=== PATIENT | female | born 1970 | race Caucasian/White ===

== ENCOUNTER 2018-07-12 16:40 | Inpatient (IN) | payer BC ==
--- NOTE | 2018-07-12 17:09 | EDPHY ---
H & P Stated Complaint: Pt. states SOB and insomnia x2 mo.'s has increased this past week Time Seen by Provider: 07/12/18 16:44 HPI/ROS: 48 yo F presents from her doctors office for shortness of breath. She states she has been feeling SOB for at least 2 months , although recently worse. She had a hx of hypertension and diabetes and has not taken any meds for about 2 years. She went to Family Practice yesterday and they planned to start her on Lisinopril, Atorvastatin and Metformin, she had not picked it up yet but returned to their office today with SOB. Review of systems As per HPI General no fever no chills positive fatigue, positive dyspnea on exertion HEENT no eye pain no eye discharge. No eye redness, no sore throat Respiratory positive cough, positive shortness of breath Cardiac no chest pain, no peripheral edema GI no abdominal pain, no diarrhea, no constipation, no nausea, no vomiting no flank pain, no hematuria, no dysuria Musculoskeletal no myalgias, no joint pain Heme no easy bruising, no easy bleeding Endo no polyuria, no polydipsia Skin no rashes, no pruritus Neuro no syncope, no dizziness, no headaches Psych is no suicidal ideation, no homicidal ideation Source: Patient Exam Limitations: No limitations - Personal History LMP (Females 10-55): 22-28 Days Ago Current Tetanus Diphtheria and Acellular Pertussis (TDAP): Unsure - Medical/Surgical History Hx Asthma: No Hx Chronic Respiratory Disease: No Hx Diabetes: Yes Hx Cardiac Disease: No Hx Renal Disease: No Hx Cirrhosis: No Hx Alcoholism: No Hx HIV/AIDS: No Hx Splenectomy or Spleen Trauma: No Other PMH: Med hx-type 2 diabetes,HTN. Surg- - Social History Smoking Status: Never smoked Alcohol Use: None Drug Use: None - Physical Exam Exam: 48-year-old female HEENT atraumatic normocephalic, extraocular muscles intact, anicteric Oropharynx negative for erythema negative exudate, tolerating her own secretions Neck supple no meningismus Lungs diminished at bases with wheeze at right base Heart rapid rate regular rhythm approximately 100, muffled Abdomen nondistended normoactive bowel sounds soft nontender Back no CVA tenderness, no step-offs, no spinal tenderness Extremities no cyanosis clubbing or edema Neuro alert and oriented, no focal deficits Constitutional: Initial Vital Signs Temperature (C) 36.7 C 07/12/18 16:48 Heart Rate 117 H 07/12/18 16:48 Respiratory Rate 22 H 07/12/18 16:48 Blood Pressure 167/118 H 07/12/18 16:48 O2 Sat (%) 93 07/12/18 16:48 O2 Delivery Mode Nasal Cannula O2 (L/minute) 2 Allergies/Adverse Reactions: Penicillins Allergy (Verified 07/12/18 16:46) Home Medications: Medication Instructions Recorded NK [No Known Home Meds] 07/12/18 Medical Decision Making - Diagnostics Imaging Results: Imaging Impressions Chest X-Ray 07/12/18 16:50 Impression: Marked enlargement of the cardiac silhouette compatible with cardiomegaly or pericardial effusion, with pulmonary vascular congestion. Chest/Thorax CTA 07/12/18 17:34 Impression: 1. Negative CT examination of the chest for acute pulmonary thromboembolic disease. 2. Patchy atelectasis of the lingula and right lower lobe, with small right pleural effusion. 3. Mild perihepatic ascites and fluid directly behind the pancreas. 4. Enlargement of all 4 cardiac chambers. Results called to Dr. Alvarenga at 6:20 PM at the time of the interpretation. ED Course/Re-evaluation: Patient seen and evaluated for shortness of breath, with known untreated hypertension and diabetes for several years. IV established, labs drawn Chest x-ray shows cardiomegaly and increased vasculature EKG normal sinus rhythm no acute ischemic changes CBC within normal limits D-dimer elevated Troponin upper limits of normal CMP elevated liver enzymes, elevated glucose BNP markedly elevated 9000 CT chest rule out PE protocol done negative for PE positive for cardiomegaly and a right pleural effusion Patient was given Lasix 20 mg IV push for both her blood pressure and presumed CHF at that time. She was also given baby aspirin to cover for the potential acute coronary syndrome. Her blood pressure remained high and she was given a sublingual nitroglycerin x3 with no significant change in her blood pressure. Next she was given labetalol 20 mg IV push, with M markedly improved blood pressure Impression Hypertension Congestive heart failure Ymi-nidqjfy-miymlejzz diabetes Plan Admit to telemetry Discussed with hospitalist Dr. Sergio Worrell Differential Diagnosis: Differential diagnosis considered but not limited to Pneumonia, COPD, asthma, pulmonary embolus, congestive heart failure, pericardial effusion, pleural effusion, myocardial infarction, poorly controlled hypertension, hyperglycemia, electrolyte abnormality - Data Points Laboratory Results: 07/12/18 07/12/18 07/12/18 17:03 17:01 16:55 POC Sodium 139 mEq/L mEq/L (135-145) POC Potassium 4.3 mEq/L mEq/L (3.3-5.0) POC Chloride 105.0 mEq/L mEq/L (97-110) POC Total CO2 25 mEq/L mEq/L (22-31) POC BUN 24 mg/dL H mg/dL (7-23) POC Creatinine 1.0 mg/dL mg/dL (0.6-1.0) POC Glucose 212 mg/dL H mg/dL (70-100) POC Calcium 9.1 mg/dL mg/dL (8.5-10.4) POC Total Bilirubin 1.1 mg/dL mg/dL (0.1-1.4) POC AST 73 IU/L H IU/L (14-46) POC ALT 89 IU/L H IU/L (9-52) POC Alk Phosphatase 121 IU/L IU/L (38-126) POC Troponin I 0.08 ng/mL ng/mL (0.00-0.08) NT-Pro-B Natriuret Pep 9380 pg/mL H pg/mL (0-125) POC Total Protein 7.5 g/dL g/dL (6.3-8.2) POC Albumin 3.4 g/dL L g/dL (3.5-5.0) Medications Given: Discontinued Medications Aspirin (Aspirin) 324 mg PO EDNOW ONE Stop: 07/12/18 17:37 Last Admin: 07/12/18 17:38 Dose: 324 mg Furosemide (Lasix Injection) 20 mg IVP EDNOW ONE Stop: 07/12/18 17:31 Last Admin: 07/12/18 17:38 Dose: 20 mg Labetalol HCl (Trandate Injection) 20 mg IVP EDNOW ONE Stop: 07/12/18 19:56 Last Admin: 07/12/18 20:03 Dose: 20 mg Nitroglycerin (Nitrostat) 0.4 mg SL EDNOW ONE Stop: 07/12/18 18:48 Last Admin: 07/12/18 19:13 Dose: 0.4 mg Point of Care Test Results: CBC CBC Collection Date 07/12/18 CBC Collection Time 16:55 WBC 9.23 RBC 5.47 HGB 14.8 HCT 46.4 PLT 312 Neut # 6.15 Neut 66.6 LYMPH # 2.12 LYMPH 23.0 MCV 84.8 Chemistry 07/12/18 07/12/18 17:03 17:01 POC Sodium 139 mEq/L mEq/L (135-145) POC Potassium 4.3 mEq/L mEq/L (3.3-5.0) POC Chloride 105.0 mEq/L mEq/L (97-110) POC Total CO2 25 mEq/L mEq/L (22-31) POC BUN 24 mg/dL H mg/dL (7-23) POC Creatinine 1.0 mg/dL mg/dL (0.6-1.0) POC Glucose 212 mg/dL H mg/dL (70-100) POC Calcium 9.1 mg/dL mg/dL (8.5-10.4) POC Total Bilirubin 1.1 mg/dL mg/dL (0.1-1.4) POC AST 73 IU/L H IU/L (14-46) POC ALT 89 IU/L H IU/L (9-52) POC Alk Phosphatase 121 IU/L IU/L (38-126) POC Troponin I 0.08 ng/mL ng/mL (0.00-0.08) POC Total Protein 7.5 g/dL g/dL (6.3-8.2) POC Albumin 3.4 g/dL L g/dL (3.5-5.0) D-Dimer D-Dimer Collection Date 07/12/18 D-Dimer Collection Time 16:55 D-Dimer (ng/ml) 1110 Urine Collection Date 07/12/18 Collection Time 18:49 HCG Results Negative Urine Dip Collection Date 07/12/18 Collection Time 18:48 Specific [place] (1.002-1.030) 1.005 PH (5.0-7.5) 5.0 Leukocytes (Negative) Trace Nitrites (Negative) Negative Protein (Negative) Negative Glucose (Negative) Negative Ketones (Negative) Negative Urobilnogen (0.2-1.0 EU) 0.2 Bilirubin (Negative) Negative Blood (Negative) Trace Departure - Departure Disposition: [facility] Acute Clinical Impression: Congestive heart failure, Hypertension Condition: Fair
[2018-07-12] MEDS ORDERED: FUROSEMIDE 20 MG/2 ML VIAL IVP ONE (17:30)
[2018-07-12] MEDS ORDERED: ASPIRIN 81 MG CHEWABLE TAB PO ONE (17:36)
[2018-07-12] MEDS ORDERED: IOPAMIDOL (ISOVUE 370) 100 ML BTL IV ONE (17:38)
[2018-07-12] MEDS ORDERED: ONDANSETRON 4 MG/2 ML VIAL IVP PRN (18:56)
[2018-07-12] MEDS ORDERED: ACETAMINOPHEN 325 MG TAB PO PRN (18:56)
[2018-07-12] MEDS ORDERED: ONDANSETRON DISINTEGRATING 4 MG TAB PO PRN (18:56)
[2018-07-12] MEDS: NITROGLYCERIN 0.4 MG BTL SL ONE ×3 (19:02→19:13)
[2018-07-12] MEDS ORDERED: LABETALOL HCL 5 MG/ML 20 ML MDV IVP ONE (19:55)
--- NOTE | 2018-07-12 21:43 | PDGENHP ---
History and Physical - Chief Complaint SAUCEDO - History of Present Illness Toña Jaquez is a 48 yo F with PMHx of T2DM and HTN who presents to [facility] for SOB. She has not seen a physician or taken medications for her chronic conditions for >2 years. She presented to PCP yesterday and was prescribed Lisinopril, Metformin, however has not prescribed them. She represented to PCP today for SOB. BP was found to be 160/120 with tachypnea and hypoxia 89% on 2L NC. She denies any palpitations, lower extremity edema. She does report a mild chest discomfort, non-radiating, described as dull in quality. In the ED, D-Dimer was elevated, CTA was performed which was negative for PE but did show cardiomegaly and small R sided pleural effusion. She was given dose of IV Lasix and transferred to [facility]. History Information - Allergies/Home Medication List Allergies/Adverse Reactions: Penicillins Allergy (Verified 07/12/18 21:23) Other-Enter Comments Home Medications: NK [No Known Home Meds] 07/12/18 [Last Taken Unknown] I have personally reviewed and updated: family history, medical history, social history, surgical history - Past Medical History diabetes type 2, hypertension - Surgical History Reports: no pertinent surgical hx - Family History Positive for: non-pertinent - Social History Smoking Status: Never smoked Alcohol Use: None Drug Use: None Review of Systems Review of Systems: ROS: 10pt was reviewed & negative except for what was stated in HPI & below Physical Exam Physical Exam: Temp Pulse Resp BP Pulse Ox 36.7 C 84 24 H 150/106 H 96 07/12/18 16:48 07/12/18 20:38 07/12/18 20:38 07/12/18 20:38 07/12/18 20:38 O2 (L/minute) 2 Constitutional: no apparent distress Eyes: PERRL Ears, Nose, Mouth, Throat: moist mucous membranes Cardiovascular: regular rate and rhythym Respiratory: reduced air movement, inspiratory crackles Gastrointestinal: soft, non-tender abdomen Skin: warm Musculoskeletal: full muscle strength Neurologic: AAOx3 Lab Data & Imaging Review POC Sodium 139 mEq/L (135-145) 07/12/18 17:01 POC Potassium 4.3 mEq/L (3.3-5.0) 07/12/18 17:01 POC Chloride 105.0 mEq/L (97-110) 07/12/18 17:01 POC Total CO2 25 mEq/L (22-31) 07/12/18 17:01 POC BUN 24 mg/dL (7-23) H 07/12/18 17:01 POC Creatinine 1.0 mg/dL (0.6-1.0) 07/12/18 17:01 POC Glucose 212 mg/dL (70-100) H 07/12/18 17:01 POC Calcium 9.1 mg/dL (8.5-10.4) 07/12/18 17:01 POC Total Bilirubin 1.1 mg/dL (0.1-1.4) 07/12/18 17:01 POC AST 73 IU/L (14-46) H 07/12/18 17:01 POC ALT 89 IU/L (9-52) H 07/12/18 17:01 POC Alk Phosphatase 121 IU/L (38-126) 07/12/18 17:01 POC Troponin I 0.08 ng/mL (0.00-0.08) 07/12/18 17:03 NT-Pro-B Natriuret Pep 9380 pg/mL (0-125) H 07/12/18 16:55 POC Total Protein 7.5 g/dL (6.3-8.2) 07/12/18 17:01 POC Albumin 3.4 g/dL (3.5-5.0) L 07/12/18 17:01 Assessment & Plan Assessment: Acute CHF Exacerbation - Prsenting with SOB, CTA showing Cardiomagely and R sided pleural effusion - No hx of CHF, will order TTE to further evaluate - S/p 20 mg IVP Lasix in ED, evalate response and redose as needed, has not been on diuretics in the past - Will start Lisinopril for CHF and HTN as below - Monitor I/O, daily weights, BMP Hypertensive Urgency - BP 160/120 on admission - Has not been on medications for >2 years - Will Lisinopril 10 mg qd this evening, consider adding B-Gallo if indicated after TTE performed - Continue to monitor Chest Discomfort - Reporting mild chest discomfort, likely in setting of CHF - EKG pending - POC Trop 0.08 on admission, will repeat and trend overnight - S/p ASA 325 mg in ED Transaminitis - AST/ALT mildly elevated on admission, possibly in setting of alcohol use - Will order RUQ U/S to further evaluate - Continue to monitor LFTs T2DM - BG 212 on admission - Was going to be prescribed Metformin by PCP yesterday - Will order SSI as IP FEN: Diabetic Diet DVT PPx: Lovenox Code: FULL Dispo: Admit to Medicine
[2018-07-12] MEDS ORDERED: D50W 25 GM/50 ML SYR IVP PRN (21:44)
[2018-07-12] MEDS: LISINOPRIL 10 MG TAB PO SCH (23:26)
[2018-07-13 04:52] LABS: PLATELET COUNT 257 10^3/uL (150-400)
[2018-07-13] MEDS: INSULIN LISPRO 100 UNIT/ML SC SCH ×3 (07:47→17:56)
[2018-07-13] MEDS: ENOXAPARIN 40 MG/0.4 ML SYR SC SCH (09:31)
[2018-07-13] MEDS: FUROSEMIDE 20 MG/2 ML VIAL IVP SCH (09:31)
[2018-07-13] MEDS: LISINOPRIL 10 MG TAB PO SCH (09:31)
--- NOTE | 2018-07-13 11:05 | ECHO ---
[email or web address] [address] [address] Main: [phone] Echocardiography Examination Transthoracic Name: LETTY BRADLEY MR#: [id number] Study Date: 07/13/2018 Study Time: 09:01 AM Date of : 1970 Age: 48 year(s) Height: 162.6 cm (64 in.) Weight: 99.79 kg (220 lb.) BSA: 2.04 m2 Gender: Female Examination: Echo Indication: Shortness of breath Image Quality: Adequate Contrast: Requested by: Sergio Worrell BP: 165 mmHg/101 mmHg Heart Rate: 85 bpm Rhythm: Normal sinus rhythm Indication: Shortness of breath Procedure Staff Referring Physician: Web Project Manager: Coty Rodriguez [facility] Reading Physician: Elgin Ojeda MD Requesting Provider: Ordering Physician: Sergio Worrell Indication: Shortness of breath Measurements Chambers AV/MV Label Value Normal Value Label Value Normal Value EF lower range (%) 35 % AV PGmax 4 mmHg EF upper range (%) 40 % AV Vmax, Caliper 1.03 m/s IVSd, 2D 1.2 cm (0.6cm - 1.1cm) RAINE D (continuity eq. 2.4 cm2 LVDd, 2D 5 cm (3.9cm - 5.3cm) Vmax) LVDs, 2D 4.2 cm (2.1cm - 4cm) MV A Vmax 0.36 m/s LVEF, 2D 33 % (54% - 74%) MV DT 148 ms LVEF, BP 36 % (55% - 70%) MV E' lateral 0.07 m/s LVEF, MOD2 35 % (55% - 70%) MV E' mean 0.06 m/s LVEF, MOD4 36 % (55% - 70%) MV E' septal 0.04 m/s LVOT PGmax 3 mmHg MV E Vmax 1.06 m/s LVOT Vmax 0.8 m/s (0.7m/s - 1.1m/s) MV E/A 2.94 LVOTd 2 cm (1.8cm - 2cm) MV E/E' lateral 15.5 LVPWd, 2D 1.1 cm MV E/E' mean 19.27 RVDd, 2D 4.4 cm (1.9cm - 3.8cm) MV E/E' septal 23.7 (0.5 - 1.7) TAPSE 1.6 cm TV/PV LADs, 2D 4.3 cm (2.7cm - 3.8cm) Label Value Normal Value LAESV index, MOD2 48 ml/m2 RA Pressure 15 mmHg RA Area 21.8 cm2 RVSP 45 mmHg Patient: LETTY BRADLEY Study Date: 07/13/2018 Page 1 of 3 09:01 AM Additional Vessels TR Pmax 30 mmHg Label Value Normal Value TR Vmax 2.73 m/s AoAsc 3.6 cm PV PGmax 3 mmHg AoRoot, 2D 3.1 cm (1.4cm - 2.6cm) PV Vmax, Caliper 0.92 m/s (0.6m/s - 0.9m/s) Conclusions Normal left ventricular size with mild concentric left ventricular hypertrophy. The ejection fraction is moderately reduced estimated at 35-40% with global hypokinesis. Grade 3 diastolic dysfunction. No regional wall motion abnormalities. Mild right ventricular dilatation. Moderate left atrial enlargement with mild right atrial enlargement. Mild mitral annular calcification with mild mitral regurgitation. Trileaflet aortic valve with trivial aortic sclerosis. There is no evidence of aortic stenosis. Mild aortic regurgitation is present. Normal appearing tricuspid valve. Moderate tricuspid regurgitation. Moderately elevated estimated RVSP at 45 mmHg. Trivial pericardial effusion. Plethoric IVC. Bonnie1 Bonnie1 Findings Left Ventricle: Left ventricle is normal in size. EF evaluated by EF (biplane Josue's). EF range is estimated at 35 % - 40 %. There is mild concentric left ventricular hypertrophy. Grade III Diastolic Dysfunction. There is moderate diffuse hypokinesis. Right Ventricle: Mildly dilated right ventricle. Right ventricular systolic function is mildly reduced. Left Atrium: The left atrium is moderately dilated. IAS: There is evidence of a hypermobile interatrial septum. Right Atrium: The right atrium is mildly dilated. Mitral Valve: Mitral valve appears structurally normal. Mild mitral regurgitation. No mitral valve stenosis. There is mild mitral thickening. There is mild mitral annular calcification. Aortic Valve: Aortic leaflets are structurally normal. Mild aortic regurgitation is present. There is no aortic stenosis. Aortic leaflets exhibit mild calcification. The aortic valve is trileaflet. Tricuspid Valve: Tricuspid valve leaflets are structurally normal. Moderate tricuspid regurgitation. No tricuspid valve stenosis. Right Ventricular systolic pressure is measured at 45 mmHg. Pulmonary artery pressure is mildly increased. Pulmonic Valve: Pulmonic leaflets are structurally normal. Mild pulmonic valve regurgitation is present. Aorta: The aorta is normal. The aortic root size in 2D measures 3.1 cm. The ascending aorta measures 3.6 cm. Aorta Measurements AoRoot, 2D is 3.1 cm. IVC: The inferior vena cava is dilated. Respirophasic changes are blunted (less than 50% variation). Pericardium: Trivial pericardial effusion. Exam Details Procedure Ordered: Echo Procedure Views: Images were obtained from the parasternal, apical, subcostal, and suprasternal notch acoustic windows Procedure Status: Routine study Image Quality: Adequate Facility Location: Cardiac Echo 1 Patient: LETTY BRADLEY Study Date: 07/13/2018 Page 2 of 3 09:01 AM (No Signature Object) Patient: LETTY BRADLEY Study Date: 07/13/2018 Page 3 of 3 09:01 AM [id number]
--- NOTE | 2018-07-13 16:16 | ASMTCMCOM ---
CM Note CM Note Notes: 07/13/2018 Case Management Note Met w/pt to discuss d/c needs. Py admitted for HTN and new onset congestive heart failure. Discussed in rounds. There are no therapies ordered today. Pt is employed at [employer]. Pt PCP is Cayla on [facility] in [place]. Emergency contact is Sejal Salamanca [phone]. There are no identfied case management d/c needs d/t independence with ADL's and employment status. Case Management d/c poc: independent with follow up as directed. Case Management available if needs change. Date Signed: 07/13/2018 04:16 PM Electronically Signed By:Luly Krueger RN
[2018-07-13] MEDS: SPIRONOLACTONE 25 MG TAB PO SCH (16:48)
[2018-07-13] MEDS: ASPIRIN 81 MG CHEWABLE TAB PO SCH (16:48)
--- NOTE | 2018-07-13 16:57 | HOSPPROG ---
Addendum entered and electronically signed by Clem Fuentes MD 07/13/18 16: 59: Pt needs to be inpatient for ongoing management. Original Note: Hospitalist Progress Note Assessment/Plan: Acute CHF Exacerbation - Prsenting with SOB, CTA showing Cardiomagely and R sided pleural effusion - No hx of CHF -TTE c/w LVH, EF 35%, global hypokinesis, RVSP 45 -cont Lasix -cont Lisinopril -Add BB - Monitor I/O, daily weights, BMP Hypertensive Urgency - BP 160/120 on admission - Has not been on medications for >2 years Indeterminate Troponin Chest Discomfort - Reporting mild chest discomfort, likely in setting of CHF - POC Trop 0.08 on admission, will repeat and trend overnight - S/p ASA 325 mg in ED Transaminitis - AST/ALT mildly elevated on admission, possibly in setting of alcohol use - Will order RUQ U/S to further evaluate - Continue to monitor LFTs T2DM - BG 212 on admission - Was going to be prescribed Metformin by PCP yesterday - Will order SSI as IP -A1C FEN: Diabetic Diet DVT PPx: Lovenox Code: FULL Plan: Stat EKG, unclear why not done previously Cards consult cont diuretics add BB Subjective: no cp currently. still with sob. still with edema Objective: Vital Signs Temp Pulse Resp BP Pulse Ox 36.4 C 94 15 143/104 H 96 07/13/18 15:47 07/13/18 15:47 07/13/18 15:47 07/13/18 15:47 07/13/18 15:47 Laboratory Results 07/13/18 03:30 07/13/18 08:26 07/12/18 07/13/18 07/14/18 05:59 05:59 05:59 Intake Total 200 1910 Output Total 1000 1300 Balance -800 610 - Physical Exam Constitutional: no apparent distress Eyes: PERRL Ears, Nose, Mouth, Throat: moist mucous membranes, hearing normal Cardiovascular: regular rate and rhythym, edema Respiratory: no respiratory distress, reduced air movement Gastrointestinal: normoactive bowel sounds, soft, non-tender abdomen Skin: warm Musculoskeletal: generalized weakness Neurologic: AAOx3 Psychiatric: interacting appropriately Lymph, Heme, Immunologic: No petechiae ICD10 Worksheet Patient Problems: Problems Problem Status Onset Congestive heart failure Acute Hypertension Acute
--- NOTE | 2018-07-13 17:47 | PDMN ---
Medical Necessity Medical necessity: [facility] M190 Heart Failure: 48 yo presents w/ SOB. Eval reveals acute CHF exacerbation w/ cardiomegaly and R pleural effusion and hypertensive urgency w/ BP 160/120. Initially OBS for workup/tx but pt meets [facility] IP criteria for HF w/ ongoing hypoxia w/ SOB requiring O2 beyond OBS care requiring additional MN. Cont IV Lasix. Hx DMII, HTN. Change to IP status 07/13@1659 per MD order.
[2018-07-13] MEDS: CARVEDILOL 3.125 MG TAB PO SCH (17:54)
--- NOTE | 2018-07-13 20:36 | GCON ---
[f rep st] CONSULTATION CARDIOLOGY CONSULTATION REFERRING PHYSICIAN: Clem Fuentes MD SUPERVISING FIELD NURSE CASE MANAGER: Dr. Bhavesh Delaney. INDICATION FOR CARDIOLOGY CONSULTATION: Systolic heart failure, with new found cardiomyopathy. HISTORY OF PRESENT ILLNESS: Parent is a 48-year-old female who was first diagnosed with type 2 diabetes, and hypertension in 2014. She reports she has not seen any medical provider for greater than 2 years. She has been noticing over the last 6 months of shortness of breath, feeling this had worsened in the last week. She did make an appointment to see PCP 2 days ago when she was prescribed lisinopril and metformin. 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 She did feel significantly worse and did present to the PCP yesterday afternoon, she was noted to be hypertensive with blood pressure of 160/120, tachypneic and hypoxic. Due to this, she was sent to the emergency department for further evaluation. On arrival, chest x-ray was done, which did note enlarged cardiac silhouette with cardiomegaly and/or pericardial effusion with pulmonary vascular congestion. Laboratory studies were drawn, which noted a BNP of 9380, negative troponin at 0.01, positive D-dimer for which she underwent CT-A of the chest which showed no PE and enlargement of all 4 cardiac chambers. She was transferred [place] the [facility] [place] to the [facility] and admitted directly to the PCU. She did receive IV diuresis in the ED. Since her admission, she does report her shortness of breath has improved. She states she has had no chest pressure or pain. She reports no palpitations, denies of any lightheadedness, near-syncope, or syncopal events. She reports that she has been mildly orthopnea, worsening in the last few days, but denies of any PND. She states she has not noticed any significant weight gain, but reports she does on monitor weight on a daily basis, and has not noticed any significant increase in edema or abdominal swelling. She denies any recent fevers, chills, or night sweats, and denies any history of hematemesis or bleeding of unknown reason. She has cardiac risk factors that include type 2 diabetes, hypertension, and questionable hyperlipidemia. She denies of any history of peripheral vascular disease, smoking. She does state that she has family history of CAD, with a maternal grandfather having an MT at age 66. PAST MEDICAL HISTORY: Patient's past medical history, includes type 2 diabetes , hypertension, and obesity. PAST SURGICAL HISTORY: She denies any surgical history. FAMILY HISTORY: Reporting maternal grandfather with history of MT at age 66. SOCIAL HISTORY: She reports she works at [employer] in [place]. She was born in [facility]. She is not . She has no children. She denies any history of tobacco abuse, reports rare alcohol use less than 1 week, and denies any illicit drug use. ALLERGIES: Penicillin. HOME MEDICATIONS: No home medications per patient. REVIEW OF SYSTEMS: 10-point review of systems done on patient all negative, except as mentioned above. PHYSICAL EXAMINATION: GENERAL APPEARANCE: Medium built, moderately obese, female. She is alert and oriented to person, place, time, and situation. She appears to be under no acute distress at this time. VITAL SIGNS : Current: Blood pressure 143/104, heart rate of 94, sinus rhythm on the monitor, respirations are 15, saturating 96% on 2 L nasal cannula, temperature 36.4 degrees Celsius. HEENT: Head is normocephalic. Lips and tongue are pink and moist with no signs of cyanosis. Conjunctivae pink. NECK: Trachea is midline, +2 carotid pulses bilateral. No auscultated bruits. Jugular laying 4 to 5 cm above sternal notch at 45 degree angle. RESPIRATORY: Lungs diminished in bases bilateral. No rhonchi, rales, or wheezing noted. No accessory muscle use. No intercostal muscle retraction noted. CARDIAC: Regular rate, regular rhythm, S1, S2. No S3, S4, gallops, rubs, or murmurs noted. ABDOMEN: Firm, nontender. Bowel sounds x4 quadrants. No organomegaly. No palpable masses. SKIN: [place], warm, dry. EXTREMITIES: No cyanosis. No clubbing. Trace to +1 peripheral edema bilateral lower extremities. LABORATORY STUDIES: CBC drawn on July 13, today showing WBC of 8.54, hemoglobin of 13.3, hematocrit of 42.8, platelet count of 257. Sodium 136, potassium 4.0, chloride 102, CO2 25, BUN 24, creatinine 0.9, glucose 175, calcium 8.3. Total bilirubin 0.8, AST 56, ALT of 95, alkaline phosphate 112, total protein 6.7, albumin 3.2. On admission noted to have a BNP of 9380. Initial troponin of 0.08, peaking last night at 0.060, and this morning at 0.051. STUDIES: Chest x-ray as mentioned above. CT-A of chest as mentioned above. Abdominal ultrasound done on 07/12/2018 showing hepatomegaly with no cirrhosis, , and wall echo shadow complex. No biliary dilation or evidence of __ . Trace of free fluid in the right upper quadrant. Echocardiogram done on this morning on 07/13/2018, noting normal LV size with mild concentric LVH, EF was moderately reduced with EF at 35% to 40% with global hypokinesis, grade 3 diastolic dysfunction with no regional wall motion abnormalities, mild RV dilation, moderate LA enlargement, mild RA enlargement, mild mitral annular calcification with mild MR, trivial aortic sclerosis with no evidence of stenosis, mild AI, moderate TR, RVSP at 45 mmHg with a trivial pericardial effusion. ASSESSMENT AND PLAN: 1. Acute systolic heart failure: Patient reporting shortness of breath, noted to have significantly elevated BNP greater than 9000, echocardiogram noting ejection fraction reduced at 35% to 40% with global hypokinesis. Patient has been treated with intravenous Lasix and reports significant improvement in symptoms. We will continue intravenous diuresis, daily weights, electrolyte monitoring, monitoring intake and output. 2. Cardiomyopathy, new onset: Patient has been noted to be extremely hypertensive, ejection fraction 35% to 40%. She has been started on lisinopril. Will start her on low-dose carvedilol at 3.125 mg p.o. daily and low-dose Aldactone at 12.5, diuresis as above. Will add laboratories to be drawn for evaluation of possible causes, including urine protein electrophoresis , serum electrophoresis, random urine creatinine, random urine protein, iron panel, and TSH level. Depending on results, and how she diureses, with her multiple cardiac risk factors , ischemia should also be evaluated, especially with episode of non-determinate troponin elevation. We will plan on diuresing her for the next day or two, and potentially having her undergo right and left heart catheterization, either on Monday or Monday. 3. Elevated troponin level: Patient noted with mildly elevated troponin level this morning peaking at 0.060 on a downward decline to 0.51. She reports no chest pain or pressure, but per the hospitalist, she did initially when examined by them. Her electrocardiogram showed sinus rhythm, possible left atrial enlargement, poor R-wave progression in anterior leads, with a leftward axis. Due to her echocardiogram showing reduced ejection fraction with global hypokinesis, at this time will continue on antiplatelet therapy of aspirin. With her multiple cardiac risk factors, we will plan on evaluating for ischemia , coronary angiogram as mentioned above. If she does develop worsening symptoms suggesting of ischemia, her catheterization can always be pushed up more urgently. 4. Hypertension urgency: Patient with significantly elevated blood pressure on admission, with improvement with the addition of lisinopril and Aldactone to her medication management. As mentioned above, will add carvedilol and Aldactone, will continue to monitor. 5. Transaminase: AST, and ALT were noted elevated upon arrival, improvement after diuresis. Ultrasound of the right upper quadrant showed no acute process. Probably elevation due to systolic heart failure, improvement of today 's lab. Repeat levels in the morning. 6. History of hyperlipidemia: Patient states she may have hyperlipidemia. Will order a fasting lipid panel in morning. With multiple risk factors, statin therapy should be considered. 7. Type 2 diabetes: Patient with type 2 diabetes, with noted elevated glucose on admission. Currently hemoglobin A1c returning at 8.5. Defer diabetic management to hospitalist services. Thank you for this consultation. We will be glad to follow along with you. /[id number]/MODL MTDD
[2018-07-14] MEDS: ASPIRIN 81 MG CHEWABLE TAB PO SCH (08:32)
[2018-07-14] MEDS: SPIRONOLACTONE 25 MG TAB PO SCH (08:32)
[2018-07-14] MEDS: LISINOPRIL 10 MG TAB PO SCH (08:33)
[2018-07-14] MEDS: CARVEDILOL 3.125 MG TAB PO SCH ×2 (08:33→18:17)
[2018-07-14] MEDS: ENOXAPARIN 40 MG/0.4 ML SYR SC SCH (08:34)
[2018-07-14] MEDS: INSULIN LISPRO 100 UNIT/ML SC SCH ×3 (08:34→18:18)
[2018-07-14] MEDS: FUROSEMIDE 20 MG/2 ML VIAL IVP SCH (08:35)
--- NOTE | 2018-07-14 11:10 | PDCARPN ---
Cardiology Progress Note Chief Complaint: Fatigue with progressive dyspnea Assessment/Plan: Assessment: Patient is a 48 y/o female with lack of recent medical following in setting of both DM and HTN (poor control of both now noted), who presented to [facility] with complaints of fatigue and progressive dyspnea. Aggressive medical therapy has been started, and as of today, the patient reports that she is feeling somewhat better. Minimal weight loss has been noted by measured assessments. No cardiovascular complaints or chest pains or pressure. No PND or orthopnea. Tolerance to the newly started mediations. Echocardiography with moderate reduction in systolic function noted (35%) without clear cause. No elevation in troponin noted, and no dynamic ST/T wave changes were appreciated on ECG. Plan: (1) Plans for continued medical management - ASA for CV risks - aggressive DM therapy to continue - more aggressive HTN management to continue with coreg, lisinopril, and aldactone (2) Plans for angiography Monday (right, left, and cor) (3) Ambulation as tolerated Patient was in agreement with these plans. Subjective: No cardiovascular complaints Objective: Vital Signs (8 Hrs) Temp Pulse Resp BP Pulse Ox 07/14/18 07:30 36.7 C 85 20 132/96 H 96 07/14/18 03:56 36.8 C 88 20 142/98 H 96 Intake/Output (24 Hrs) 07/13/18 07/14/18 07/15/18 05:59 05:59 06:59 Intake Total 0 Output Total 1450 250 Balance -1450 -250 Intake: Oral (ml) 0 Output: Urine (ml) 1450 250 Toilet 1450 250 Other: Weight 98.6 kg Number of Stools Toilet 1 1 Result Diagrams: 07/13/18 03:30 07/14/18 03:56 Telemetry: sinus rhythm Echocardiogram: moderate suppression of the LVEF (35%) - Physical Exam Constitutional: WDWN, no apparent distress, obese Eyes: PERRL, EOMI Ears, Nose, Mouth, Throat: moist mucous membranes Cardiovascular: regular rate and rhythm, no murmurs, no rubs, no gallops, pulses symmetric bilat, No jugular vein distention Peripheral Pulses: 2+: dorsalis-pedis (R), dorsalis-pedis (L) Respiratory: clear to auscultate bilat, no crackles, no wheezes Gastrointestinal: normoactive bowel sounds Skin: no rashes Musculoskeletal: no muscular tenderness, no joint effusions Neurologic: AAOx3, CN II-XII grossly intact Psychiatric: cooperative, interactive, following commands ICD10 Worksheet Patient Problems: Problems Problem Status Onset Congestive heart failure Acute Hypertension Acute
--- NOTE | 2018-07-14 15:08 | HOSPPROG ---
Hospitalist Progress Note Assessment/Plan: Acute CHF Exacerbation - Presenting with SOB, CTA showing Cardiomagely and R sided pleural effusion - No hx of CHF - TTE on this admission c/w LVH, EF 35%, global hypokinesis, RVSP 45 - cont Lasix 20 mg IV qd, may need additional dose this afternoon - cont Lisinopril - Coreg and Aldactone added by cardiology - Cardiology following, LHC and RHC to be performed on Monday - Monitor I/O, daily weights, BMP Hypertensive Urgency - BP 160/120 on admission, improved to 130/90 this AM - Has not been on medications for >2 years - Diuresis with addition of coreg and aldactone added by cardiology Chest Discomfort - Reporting mild chest discomfort, likely in setting of CHF - POC Trop 0.08 on admission trended 0.06-0.05 - S/p ASA 325 mg in ED Transaminitis - AST/ALT mildly elevated on admission, possibly in setting of alcohol use - RUQ U/S performed on 07/12 which showed hepatomegaly, no acute abnormalities - Continue to monitor LFTs T2DM - BG 212 on admission - Was going to be prescribed Metformin by PCP - SSI as IP -A1C Hyponatremia - Na 133 this AM, in setting of diuretics - Repeat Na in the Am FEN: Diabetic Diet DVT PPx: Lovenox Code: FULL Dispo: Pending clinical course Subjective: Patient reports mild improved SOB this AM Objective: Vital Signs Temp Pulse Resp BP Pulse Ox 36.5 C 96 16 135/91 H 97 07/14/18 12:00 07/14/18 12:00 07/14/18 12:00 07/14/18 12:00 07/14/18 12:00 Laboratory Results 07/14/18 03:56 07/13/18 07/14/18 07/15/18 05:59 05:59 06:59 Intake Total 0 Output Total 1450 1250 Balance -1450 -1250 - Physical Exam Constitutional: no apparent distress Eyes: PERRL Ears, Nose, Mouth, Throat: moist mucous membranes Cardiovascular: regular rate and rhythym, edema Respiratory: no respiratory distress Gastrointestinal: soft, non-tender abdomen Skin: warm Neurologic: AAOx3 Psychiatric: interacting appropriately ICD10 Worksheet Patient Problems: Problems Problem Status Onset Congestive heart failure Acute Hypertension Acute
[2018-07-15] MEDS: CARVEDILOL 3.125 MG TAB PO SCH ×2 (07:39→18:40)
[2018-07-15] MEDS: INSULIN LISPRO 100 UNIT/ML SC SCH ×3 (08:10→18:40)
[2018-07-15] MEDS: ASPIRIN 81 MG CHEWABLE TAB PO SCH (09:16)
[2018-07-15] MEDS: SPIRONOLACTONE 25 MG TAB PO SCH (09:16)
[2018-07-15] MEDS: LISINOPRIL 10 MG TAB PO SCH (09:17)
[2018-07-15] MEDS: FUROSEMIDE 20 MG/2 ML VIAL IVP SCH (09:17)
[2018-07-15] MEDS: ENOXAPARIN 40 MG/0.4 ML SYR SC SCH (09:17)
--- NOTE | 2018-07-15 11:27 | PDCARPN ---
Cardiology Progress Note Chief Complaint: Patient is feeling well today. Assessment/Plan: Assessment: 07-15-18 Patient doing well today. No cardiovascular complaints of chest pains or pressure. No PND or orthopnea. Ongoing diuresis with about 2 kg of weight diuresed off between yesterday and today. No indications for this procedure to be performed today (not urgent) and would like to have the patient diuresed prior to performance of invasive procedure. Patient was in agreement with these plans. 07-14-18 Patient is a 48 y/o female with lack of recent medical following in setting of both DM and HTN (poor control of both now noted), who presented to [facility] with complaints of fatigue and progressive dyspnea. Aggressive medical therapy has been started, and as of today, the patient reports that she is feeling somewhat better. Minimal weight loss has been noted by measured assessments. No cardiovascular complaints or chest pains or pressure. No PND or orthopnea. Tolerance to the newly started mediations. Echocardiography with moderate reduction in systolic function noted (35%) without clear cause. No elevation in troponin noted, and no dynamic ST/T wave changes were appreciated on ECG. Plan: (1) Plans for continued medical management - ASA for CV risks - aggressive DM therapy to continue - HTN management to continue with coreg, lisinopril, and aldactone (2) Plans for angiography Monday (right, left, and cor) (3) Ambulation as tolerated Subjective: Patient feeling well today Reviewed/Discussed With: family Objective: Vital Signs (8 Hrs) Temp Pulse Resp BP Pulse Ox 07/15/18 11:20 36.8 C 83 18 113/77 96 07/15/18 07:37 36.7 C 88 20 140/97 H 94 07/15/18 04:00 36.8 C 86 20 112/72 97 Intake/Output (24 Hrs) 07/14/18 07/15/18 07/16/18 04:59 05:59 05:59 Intake Total Output Total 200 Balance -200 Intake: Oral (ml) Output: Urine (ml) 200 Toilet 200 Other: Weight Number of Voids Toilet Number of Stools Toilet Result Diagrams: 07/13/18 03:30 07/15/18 03:34 Telemetry: normal sinus rhythm with rate of 90 bpm - Physical Exam Constitutional: WDWN, healthy appearing, no apparent distress, obese Eyes: PERRL, EOMI Ears, Nose, Mouth, Throat: moist mucous membranes Cardiovascular: regular rate and rhythm, no murmurs, no rubs, no gallops, pulses symmetric bilat, No jugular vein distention Peripheral Pulses: 2+: dorsalis-pedis (R), dorsalis-pedis (L) Respiratory: clear to auscultate bilat, no crackles Gastrointestinal: normoactive bowel sounds Skin: no rashes, other (trace edema) Neurologic: AAOx3, CN II-XII grossly intact Psychiatric: cooperative, interactive, following commands ICD10 Worksheet Patient Problems: Problems Problem Status Onset Congestive heart failure Acute Hypertension Acute
--- NOTE | 2018-07-15 14:33 | HOSPPROG ---
Hospitalist Progress Note Assessment/Plan: Acute CHF Exacerbation - Presenting with SOB, CTA showing Cardiomagely and R sided pleural effusion - No hx of CHF prior to admission - TTE on this admission c/w LVH, EF 35%, global hypokinesis, RVSP 45 - cont Lasix 20 mg IV qd, net negative 1.25 L in past 24 hours - cont Lisinopril - Coreg and Aldactone added by cardiology - Cardiology following, LHC and RHC to be performed tomorrow - Monitor I/O, daily weights, BMP Hypertensive Urgency - BP 160/120 on admission, improved to 140/90 this AM - Has not been on medications for >2 years - Diuresis with addition of coreg and aldactone added by cardiology Chest Discomfort - Reporting mild chest discomfort, likely in setting of CHF - POC Trop 0.08 on admission trended down to 0.06 -> 0.05 - S/p ASA 325 mg in ED Transaminitis - AST/ALT mildly elevated on admission - RUQ U/S performed on 07/12 which showed hepatomegaly, no acute abnormalities - Continue to monitor LFTs T2DM - BG 212 on admission - Was going to be prescribed Metformin by PCP - SSI as IP - A1C 8.5 on this admission Hyponatremia - Na 133 yest AM, 138 today, in setting of diuretics - Continue to monitor FEN: Diabetic Diet DVT PPx: Lovenox Code: FULL Dispo: Pending clinical course Subjective: Pateint reports continued improving SOB Objective: Vital Signs Temp Pulse Resp BP Pulse Ox 36.8 C 83 18 113/77 96 07/15/18 11:20 07/15/18 11:20 07/15/18 11:20 07/15/18 11:20 07/15/18 11:20 Laboratory Results 07/15/18 03:34 07/14/18 07/15/18 07/16/18 04:59 05:59 05:59 Intake Total Output Total 1000 Balance -1000 - Physical Exam Constitutional: no apparent distress Eyes: PERRL Ears, Nose, Mouth, Throat: moist mucous membranes Cardiovascular: regular rate and rhythym Respiratory: no respiratory distress, inspiratory crackles (mild b/l) Gastrointestinal: soft, non-tender abdomen Skin: warm Musculoskeletal: full muscle strength Neurologic: AAOx3 Psychiatric: interacting appropriately ICD10 Worksheet Patient Problems: Problems Problem Status Onset Congestive heart failure Acute Hypertension Acute
[2018-07-15] MEDS ORDERED: diphenhydrAMINE 25 MG CAP PO ONE (19:52)
[2018-07-15] MEDS ORDERED: TEMAZEPAM 15 MG CAP PO PRN (19:52)
[2018-07-15] MEDS ORDERED: FAMOTIDINE 20 MG TAB PO ONE (19:52)
[2018-07-15] MEDS ORDERED: ACETAMINOPHEN 325 MG TAB PO PRN (19:52)
[2018-07-15] MEDS ORDERED: DIAZEPAM 5 MG TAB PO ONE (19:52)
[2018-07-15] MEDS ORDERED: NITROGLYCERIN 0.4 MG BTL SL PRN (19:52)
[2018-07-15] MEDS ORDERED: NS 1,000 ML IV SCH (20:00)
[2018-07-16 04:18] LABS: PLATELET COUNT 247 10^3/uL (150-400)
[2018-07-16 04:26] LABS: INR 1.12 (0.83-1.16)
[2018-07-16] MEDS ORDERED: DIAZEPAM 5 MG TAB PO ONE (08:00)
[2018-07-16] MEDS ORDERED: diphenhydrAMINE 25 MG CAP PO ONE ×2 (08:00→10:56)
[2018-07-16] MEDS ORDERED: FAMOTIDINE 20 MG TAB PO ONE (08:00)
[2018-07-16] MEDS: INSULIN LISPRO 100 UNIT/ML SC SCH ×3 (09:03→17:51)
[2018-07-16] MEDS: ENOXAPARIN 40 MG/0.4 ML SYR SC SCH (09:03)
[2018-07-16] MEDS: CARVEDILOL 3.125 MG TAB PO SCH ×2 (09:10→18:01)
[2018-07-16] MEDS: SPIRONOLACTONE 25 MG TAB PO SCH (09:10)
[2018-07-16] MEDS: FUROSEMIDE 20 MG/2 ML VIAL IVP SCH (09:10)
[2018-07-16] MEDS: LISINOPRIL 10 MG TAB PO SCH (09:10)
[2018-07-16] MEDS: ASPIRIN 81 MG CHEWABLE TAB PO SCH (10:29)
[2018-07-16] MEDS ORDERED: HEPARIN 10,000 UNIT/10 ML MDV (1,000 UNIT/ML) ONE (10:37)
[2018-07-16] MEDS ORDERED: fentaNYL 100 MCG/2 ML INJ ONE (10:37)
[2018-07-16] MEDS ORDERED: MIDAZOLAM 2 MG/2 ML VIAL ONE (10:37)
[2018-07-16] MEDS ORDERED: VERAPAMIL 5 MG/2 ML VIAL ONE (10:37)
[2018-07-16] MEDS ORDERED: LIDOCAINE 1% 300 MG/30 ML SDV ONE (10:37)
[2018-07-16] MEDS ORDERED: IOPAMIDOL (ISOVUE-370) 150 ML BTL IV ONE (10:38)
[2018-07-16] MEDS ORDERED: DIAZEPAM 5 MG TAB ONE (10:57)
[2018-07-16] MEDS ORDERED: FAMOTIDINE 20 MG TAB ONE (10:57)
--- NOTE | 2018-07-16 11:35 | PDPROPOC ---
Sedation Plan of Care Sedation Plan of Care: vital signs stable, mental status noted, patient educated of risks, benefits, alternatives, patient can tolerate sedation ASA Classification: ASA 4 Planned drugs: fentanyl, midazolam Mallampati Score: Class 3 Mallampati Reference Image: Patient passed 3-3-2 rule?: No
--- NOTE | 2018-07-16 11:36 | PDHPUP ---
History & Physical Update H&P update statement: This history and physical update is based on an assessment of the patient which was completed after admission or registration (within 24 hours), but prior to the surgery/procedure. H&P update: H&P reviewed & patient examined, changes noted (The patient continues to be hypoxic and short of breath; [place] heart association class IV symptoms)
--- NOTE | 2018-07-16 12:10 | PDDXCAT ---
Diagnostic Cath Note - . 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 LAD: The left anterior descending is 4mm in size and gives rise to three important diagonal branches. The first diagonal is large and is 2.75mm in the size and courses in a circumflex obtuse marginal system posteriorly. LCX: The left circumflex is 2.5mm in size and tracks in the posterior AV groove posteriorly. There is SUREKHA III flow. RCA: The right coronary artery is 3.5mm in size and dominant. The vessel gives rise to a PDA and PLV branch. There is SUREKHA III flow throughout. EDP: 29mmHg LVEF: 15-20% Wall motion: On the LV gram there is severely decreased LV systolic function. The EF is 15-20%. There is global hypokinesis and basal inferior wall akinesis. The visualized portion of the thoracic aortic valve reveals three sinuses of valsalva most consistent with a trileaflet valve. There is 3+ mitral regurgitation on pressurized injection. There is no gradient on pullback across the aortic valve. There is no evidence of akila dissection or aneurysm formation of the thoracic aorta. - Findings-Right Heart Catheterization RA: ; SAT 69.9%; SVC 73.3% RV: 48 PA: 48/30/37;SAT 69.4% PAOP: AO: 127/90/96; SAT 93.6% CO: 5.6 CI: 2.86 Complications: NONE Estimated blood loss: <50ml Closure method: TR Band Assessment: There are no luminal irregularities to suggest underlying coronary disease. The patient has a significantly decreased ejection fraction measuring 15-20%. There are resting wall abnormalities and 3+ mitral regurgitation on pressurized injection. There are elevated filling pressures with moderate pulmonary hypertension. These findings are consistent with a non ischemic cardiomyopathy. The patient does not abuse alcohol and has not had a recent viral illness of any kind. Plan: The patient has NYHA class IV symptoms, she has significantly decreased ejection fraction 15-20% with resting wall moition abnormalities and 3+ mitral regurgitation. I would like the patient to have a formal consultation with Dr. Igor Garber at [facility] . She will need to remain in the hospital as her oxygen requirements are still quite high and her filling pressures are also dramatically increased. Intervention: NONE Patient Problems: Problems Problem Status Onset Congestive heart failure Acute Hypertension Acute
[2018-07-16] MEDS ORDERED: OXYCODONE/APAP 5/325 TAB PO PRN (12:55)
[2018-07-16] MEDS ORDERED: ATROPINE SULFATE 1 MG/10 ML SYR IVP PRN (12:55)
--- NOTE | 2018-07-16 13:16 | ASMTCMCOM ---
CM Note CM Note Notes: Patient had L and R heart catheterizations today and was not found to have any underlying coronary disease. She will have a formal consulation w Dr Garber as an outpatient. She needs to remain inpatient, however, as her O2 needs are still high. Case Management still anticipates an independent discharge. Current CM Discharge plan: independent Date Signed: 07/16/2018 01:13 PM Electronically Signed By:Fouzia Rosenbaum RN
--- NOTE | 2018-07-16 16:32 | HOSPPROG ---
Hospitalist Progress Note Assessment/Plan: Acute CHF Exacerbation - Presenting with SOB, CTA showing Cardiomegaly and R sided pleural effusion - No hx of CHF prior to admission - TTE on this admission c/w LVH, EF 35%, global hypokinesis, RVSP 45 - cont Lasix 20 mg IV qd, net negative 1.1 L in past 24 hours - cont Lisinopril - Coreg and Aldactone added by cardiology - Cardiology following, LHC and RHC performed today showing no CAD, significantly depressed ED 15-20%, resting wall abnormalities and 3+ MR, elevated filling pressures with moderate pulm HTN, consistent with NICM - Monitor I/O, daily weights, BMP Hypertensive Urgency - BP 160/120 on admission, improved to 140/90 this AM - Has not been on medications for >2 years - Diuresis with addition of coreg and aldactone added by cardiology Chest Discomfort - Reporting mild chest discomfort, likely in setting of CHF - POC Trop 0.08 on admission trended down to 0.06 -> 0.05 - LHC today with no CAD - S/p ASA 325 mg in ED Transaminitis - AST/ALT mildly elevated on admission - RUQ U/S performed on 07/12 which showed hepatomegaly, no acute abnormalities - Continue to monitor LFTs T2DM - BG 212 on admission - Was going to be prescribed Metformin by PCP - SSI as IP - A1C 8.5 on this admission Hyponatremia - Na 133 yest AM, 138 today, in setting of diuretics - Continue to monitor FEN: Diabetic Diet DVT PPx: Lovenox Code: FULL Dispo: Pending clinical course Subjective: Patient reports no complaints this AM Objective: Vital Signs Temp Pulse Resp BP Pulse Ox 37.2 C 82 16 143/106 H 98 07/16/18 07:59 07/16/18 15:40 07/16/18 15:40 07/16/18 15:40 07/16/18 15:40 Laboratory Results 07/16/18 03:40 07/16/18 03:40 07/15/18 07/16/18 07/17/18 05:59 05:59 05:59 Intake Total 1015 100 Output Total 2150 1500 Balance -1135 -1400 PT 14.0 SEC (12.0-15.0) 07/16/18 03:40 INR 1.12 (0.83-1.16) 07/16/18 03:40 - Physical Exam Constitutional: no apparent distress Eyes: PERRL Ears, Nose, Mouth, Throat: moist mucous membranes Cardiovascular: regular rate and rhythym, edema Respiratory: no respiratory distress, reduced air movement Gastrointestinal: soft, non-tender abdomen Skin: warm Neurologic: AAOx3 Psychiatric: interacting appropriately ICD10 Worksheet Patient Problems: Problems Problem Status Onset Congestive heart failure Acute Hypertension Acute
[2018-07-17] MEDS: ASPIRIN 81 MG CHEWABLE TAB PO SCH (09:38)
[2018-07-17] MEDS: CARVEDILOL 3.125 MG TAB PO SCH ×2 (09:38→19:23)
[2018-07-17] MEDS: FUROSEMIDE 20 MG/2 ML VIAL IVP SCH (09:38)
[2018-07-17] MEDS: SPIRONOLACTONE 25 MG TAB PO SCH (09:38)
[2018-07-17] MEDS: LISINOPRIL 10 MG TAB PO SCH (09:41)
[2018-07-17] MEDS: ENOXAPARIN 40 MG/0.4 ML SYR SC SCH (09:41)
[2018-07-17] MEDS: INSULIN LISPRO 100 UNIT/ML SC SCH ×3 (09:46→18:51)
--- NOTE | 2018-07-17 16:15 | PDCARPN ---
Cardiology Progress Note Assessment/Plan: Assessment: Plan: Reviewed/Discussed With: hospitalist, multidisciplinary team Time Spent with Patient: greater than 25 minutes Time Spent with Patient: Greater than 25 minutes spent on this patients care, greater than 50% of time spent counseling, educating, and coordinating care regarding the above mentioned plan. Objective: Vital Signs (8 Hrs) Temp Pulse Resp BP Pulse Ox 07/17/18 16:09 36.8 C 87 19 139/98 H 97 07/17/18 11:26 37.0 C 87 18 146/97 H 97 07/17/18 09:38 91 158/101 H Intake/Output (24 Hrs) 07/16/18 07/17/18 07/18/18 05:59 05:59 05:59 Intake Total 1015 600 740 Output Total 2150 1925 1000 Balance -1135 -1325 -260 Intake: Oral (ml) 1015 600 740 Output: Urine (ml) 2150 1925 1000 Bedpan 400 Toilet 2150 1525 1000 Other: Weight 95.5 kg 93 kg Number of Voids Toilet 1 1 1 Number of Stools Toilet 1 Result Diagrams: 07/16/18 03:40 07/17/18 03:45 Telemetry: Normal sinus rhythm - Physical Exam Constitutional: no apparent distress, obese Eyes: PERRL, EOMI, anicteric sclera Ears, Nose, Mouth, Throat: moist mucous membranes Cardiovascular: regular rate and rhythm, systolic murmur Respiratory: clear to auscultate bilat Gastrointestinal: normoactive bowel sounds, No rebound Skin: no rashes, other (arteriotomy site reveals minor bruising...) Neurologic: AAOx3 Psychiatric: cooperative, interactive, following commands - . Pending Discharge Within 48 Hours: Yes ICD10 Worksheet Patient Problems: Problems Problem Status Onset Congestive heart failure Acute Hypertension Acute
--- NOTE | 2018-07-17 16:25 | HOSPPROG ---
Hospitalist Progress Note Assessment/Plan: Acute CHF Exacerbation - Presenting with SOB, CTA showing Cardiomegaly and R sided pleural effusion - No hx of CHF prior to admission - TTE on this admission c/w LVH, EF 35%, global hypokinesis, RVSP 45 - cont Lasix 20 mg IV qd, net negative 1.1 L in past 24 hours - cont Lisinopril - Coreg and Aldactone added by cardiology - Cardiology following, LHC and RHC performed on 07/16 showing no CAD, significantly depressed ED 15-20%, resting wall abnormalities and 3+ MR, elevated filling pressures with moderate pulm HTN, consistent with NICM - Dr. Garber of Cardiology Heart Failure to see patient tomorrow - Monitor I/O, daily weights, BMP Hypertensive Urgency - BP 160/120 on admission, improved to 140/90 this AM - Has not been on medications for >2 years - Diuresis with addition of coreg and aldactone added by cardiology Chest Discomfort - Reporting mild chest discomfort, likely in setting of CHF - POC Trop 0.08 on admission trended down to 0.06 -> 0.05 - LHC today with no CAD - S/p ASA 325 mg in ED Transaminitis - AST/ALT mildly elevated on admission - RUQ U/S performed on 07/12 which showed hepatomegaly, no acute abnormalities - Continue to monitor LFTs T2DM - BG 212 on admission - Was going to be prescribed Metformin by PCP - SSI as IP - A1C 8.5 on this admission Hyponatremia - Na 133 yest AM, 138 on 07/16 - Continue to monitor FEN: Diabetic Diet DVT PPx: Lovenox Code: FULL Dispo: Pending clinical course Subjective: Patient reports continued improving SOB Objective: Vital Signs Temp Pulse Resp BP Pulse Ox 36.8 C 87 19 139/98 H 97 07/17/18 16:09 07/17/18 16:09 07/17/18 16:09 07/17/18 16:09 07/17/18 16:09 Laboratory Results 07/16/18 03:40 07/17/18 03:45 07/16/18 07/17/18 07/18/18 05:59 05:59 05:59 Intake Total 1015 600 740 Output Total 2150 1925 1000 Balance -1135 -1325 -260 PT 14.0 SEC (12.0-15.0) 07/16/18 03:40 INR 1.12 (0.83-1.16) 07/16/18 03:40 - Physical Exam Constitutional: no apparent distress Eyes: PERRL Ears, Nose, Mouth, Throat: moist mucous membranes Cardiovascular: regular rate and rhythym, edema Respiratory: no respiratory distress Gastrointestinal: soft, non-tender abdomen Skin: warm Musculoskeletal: full muscle strength Neurologic: AAOx3 ICD10 Worksheet Patient Problems: Problems Problem Status Onset Congestive heart failure Acute Hypertension Acute
--- NOTE | 2018-07-18 08:40 | CPEKG ---
Test Reason : OPEN Blood Pressure : / mmHG Vent. Rate : 089 BPM Atrial Rate : 089 BPM P-R Int : 201 ms QRS Dur : 083 ms QT Int : 387 ms P-R-T Axes : 036 -09 087 degrees QTc Int : 471 ms Sinus rhythm Probable left atrial enlargement Anterior infarct, old Confirmed by Bhavesh Peraza ([id number]) on 07/18/2018 8:40:16 AM Referred By: Sergio Worrell Confirmed By:Bhavesh Peraza
[2018-07-18] MEDS: ENOXAPARIN 40 MG/0.4 ML SYR SC SCH (09:19)
[2018-07-18] MEDS: SPIRONOLACTONE 25 MG TAB PO SCH (09:20)
[2018-07-18] MEDS: CARVEDILOL 3.125 MG TAB PO SCH (09:20)
[2018-07-18] MEDS: FUROSEMIDE 20 MG/2 ML VIAL IVP SCH (09:20)
[2018-07-18] MEDS: LISINOPRIL 10 MG TAB PO SCH (09:20)
[2018-07-18] MEDS: ASPIRIN 81 MG CHEWABLE TAB PO SCH (09:20)
[2018-07-18] MEDS: INSULIN LISPRO 100 UNIT/ML SC SCH ×3 (09:40→18:00)
[2018-07-18] MEDS: CARVEDILOL 6.25 MG TAB PO SCH (18:00)
[2018-07-18] MEDS ORDERED: LISINOPRIL 10 MG TAB ONE (18:34)
--- NOTE | 2018-07-18 19:32 | GCON ---
[f rep st] CONSULTATION CHF CONSULT DATE OF CONSULTATION: 07/18/2018 REFERRING PHYSICIAN: Zachary Garcia MD REASON FOR CONSULTATION: Evaluate woman with 2 months of worsening fatigue and shortness of breath w ith newly diagnosed nonischemic cardiomyopathy with an LVEF in the 20s. HISTORY OF PRESENT ILLNESS: I was asked by Dr. Zachary Garcia to consult for the above reasons. The p saira is a 48-year-old woman who was told for years ago she had diabetes and hypertension and was on medications for several months and then stop them. She is a 0, para 0 with a last menstrual period about a month ago. She has been feeling poorly for about 2 months with worsening fatigue and dyspnea on exertion. She presented to the hospital 6 days ago with decompensated heart failure. An echo demonstrated an LVEF in the 20s. Heart catheterization demonstrated normal coronary arteries w ith elevated congestive filling pressures. She is feeling better, but still short of breath at rest and walking 10 to 20 feet. She denies chest pain, palpitations, orthopnea, or syncope. PAST MEDICAL HISTORY: Probable hypertensive cardiomyopathy with an LVEF in the 20s. PAST SURGICAL HISTORY: None. MEDICATIONS: Carvedilol 3.125 mg b.i.d., lisinopril 10 mg per day, Aldactone, and Lasix. ALLERGIES: No known drug allergies. SOCIAL HISTORY: She denies tobacco use and has rare alcohol intake. She works at [employer] in [employer] in [place], [place]. FAMILY HISTORY: Unremarkable for premature heart failure. REVIEW OF SYSTEMS: The patient reports no recent fevers, chills or GI bleed symptoms, such as hemate mesis, melena, or bright red blood per rectum. Rest of 10-point review of systems is negative. PHYSICAL EXAM: VITAL SIGNS: Afebrile, pulse is 80, blood pressure 140/100, respirations 20. GENERA L: A normal-appearing woman in no acute distress without chest pain or using excess respiratory musc les. HEENT: Eyes: Pupils equal, reactive to light. ENT: Oral mucosa with no cyanosis. NECK: Ju gular venous pressure to 7 to 8 cm. Carotid pulses 2+ bilaterally with no obvious bruits. No thyrom egaly noted. LUNGS: Clear to auscultation bilaterally without rales, rhonchi, or wheezing. HEART: Enlarged PMI. Regular rate and rhythm with positive S3 gallop. A 1/6 nonradiating systolic murmur is heard. ABDOMEN: Soft and nontender. No guarding or rebound. EXTREMITIES: 2+ peripheral pulses , including femoral and pedal pulses. No edema noted. MUSCULOSKELETAL: No scoliosis. Neck, no nuc loretta rigidity. SKIN: No cyanosis or bleeding. NEURO: Normal affect and mood. IMPRESSION: A 48-year-old woman with acute nonischemic systolic heart failure with a left ventricula r ejection fraction in the 20s, probably from longstanding hypertension. She is near euvolemic and h er blood pressure is still too high. RECOMMENDATIONS: 1. Would increase her lisinopril to 20 mg per day. 2. Would increase her carvedilol to 6.25 mg b.i.d. 3. Would continue rest of medications without change. 4. Would get labs in the morning, including a BMP panel and BNP level. 5. I think probably she could be discharged to home tomorrow afternoon with or without supplemental oxygen depending on how she progresses over the next 24 hours. 6. Will ensure that she has quick followup in the CHF Clinic in 7 to 10 days with me upon discharge tomorrow. /[id number]/MODL
--- NOTE | 2018-07-19 08:46 | SOAPPROG ---
SOAP Progress Note Assessment/Plan: Assessment: 48 y/o woman with two months of CHF symptoms and new onset non-ischemic systolic CHF with LVEF 37% and class III NYHA sx. Etiology of her LV dysfunction is probably HTN. She is still hypervolemic requiring supplemental O2 and BP not completely controlled. PLAN: 1)lasix 60mg IV x one this AM and then start Lasix 40mg PO daily this afternoon. 2)increase Lisinopril to 30mg PO qam. 3)increase Aldactone to 25mg PO qam. 4)rest of meds without changes. 5)Nutrition consult today for low NACL diet (1800 mmols) and fluid restrict 64 oz/day 6)ambulate on RA O2 and see if needs supplemental O2. 7)Home probably tomorrow (Monday) with follow in [facility] in 7- 10 days post discharge 8)no work for 10-14 days the probably okay to return to work at [employer] at [employer]. 07/19/18 08:42 Subjective: feels a little better but still SAUCEDO walking around her hospital room. No CP, dizziness, palpitations or PND. Lots of appropriate questions regarding new diagnosis of HF. Objective: Vital Signs Temp Pulse Resp BP Pulse Ox 36.6 C 81 16 140/100 H 98 07/19/18 07:42 07/19/18 07:42 07/19/18 07:42 07/19/18 07:42 07/19/18 07:42 Laboratory Results 07/16/18 03:40 07/19/18 03:50 07/18/18 07/19/18 07/20/18 05:59 05:59 05:59 Intake Total 1580 500 Output Total 1500 1100 Balance 80 -600 PT 14.0 SEC (12.0-15.0) 07/16/18 03:40 INR 1.12 (0.83-1.16) 07/16/18 03:40 Physical Exam - Physical Exam General Appearance: alert EENT: normal ENT inspection Neck: non-tender Respiratory: rales (rare crackles at bases. ), No wheezing Cardiac/Chest: regular rate, rhythm, JVD (jvp to 8-9cm.), systolic murmur, No edema, No gallop Peripheral Pulses: 2+: carotid (R), carotid (L), femoral (R), femoral (L), dorsalis-pedis (R), dorsalis-pedis (L) Abdomen: non-tender, No guarding, No rebound, No ascites Skin: warm/dry Extremities: No pedal edema, No calf tenderness Neuro/Psych: alert ICD10 Worksheet Patient Problems: Problems Problem Status Onset Congestive heart failure Acute Hypertension Acute
[2018-07-19] MEDS ORDERED: FUROSEMIDE 100 MG/10 ML VIAL IVP ONE (08:49)
[2018-07-19] MEDS ORDERED: LISINOPRIL 20 MG TAB PO SCH (09:00)
[2018-07-19] MEDS: CARVEDILOL 6.25 MG TAB PO SCH ×2 (09:04→18:40)
[2018-07-19] MEDS: ENOXAPARIN 40 MG/0.4 ML SYR SC SCH (09:04)
[2018-07-19] MEDS: ASPIRIN 81 MG CHEWABLE TAB PO SCH (09:04)
[2018-07-19] MEDS: SPIRONOLACTONE 25 MG TAB PO SCH (09:06)
[2018-07-19] MEDS: LISINOPRIL 20 MG TAB PO SCH (09:07)
[2018-07-19] MEDS: INSULIN LISPRO 100 UNIT/ML SC SCH ×3 (09:10→18:40)
[2018-07-19] MEDS: FUROSEMIDE 40 MG TAB PO SCH (14:23)
--- NOTE | 2018-07-19 15:51 | ASMTCMCOM ---
CM Note CM Note Notes: 07/19/2018 Case Management Note Discussed during rounds today. Diuresis continues. Discharge possible tomorrow. There are no new needs from case management. Case Management d/c poc: independent with follow up as directed. Case Management available if needs change. Date Signed: 07/19/2018 03:50 PM Electronically Signed By:Luly Krueger RN
--- NOTE | 2018-07-19 18:59 | HOSPPROG ---
Hospitalist Progress Note Assessment/Plan: * Acute systolic CHF - EF 15% -continue IV lasix - still 84% RA today -lisinopril, Coreg, Aldactone per Dr Garber -cath negative - this is non-ischemic cardiomyopathy * HTN urgency -off meds as outpatient -uncontrolled HTN is likely cause of her cardiomyopathy * DM II -HgA1c 8.5 -start metformin at discharge * Obesity BMI 34 Subjective: Still SOB Objective: Vital Signs Temp Pulse Resp BP Pulse Ox 36.6 C 86 14 138/96 H 93 07/19/18 15:32 07/19/18 18:40 07/19/18 15:32 07/19/18 18:40 07/19/18 15:32 Laboratory Results 07/16/18 03:40 07/19/18 03:50 07/18/18 07/19/18 07/20/18 05:59 05:59 05:59 Intake Total 1580 500 800 Output Total 1500 1100 2800 Balance 80 -600 -2000 PT 14.0 SEC (12.0-15.0) 07/16/18 03:40 INR 1.12 (0.83-1.16) 07/16/18 03:40 CXR viewed, my personal interpretation is - CHF with CM CTA chest - no PE - Physical Exam Constitutional: no apparent distress, appears nourished, not in pain Cardiovascular: regular rate and rhythym, no murmur, rub, or gallop Respiratory: no respiratory distress, no rales or rhonchi, clear to auscultation Gastrointestinal: normoactive bowel sounds, soft, non-tender abdomen, no palpable masses Skin: no rashes or abrasions, no fluctuance, no induration Neurologic: AAOx3, sensation intact bilaterally Psychiatric: interacting appropriately, not anxious, not encephalopathic, thought process linear ICD10 Worksheet Patient Problems: Problems Problem Status Onset Congestive heart failure Acute Hypertension Acute
[2018-07-20] MEDS: SPIRONOLACTONE 25 MG TAB PO SCH (08:54)
[2018-07-20] MEDS: CARVEDILOL 6.25 MG TAB PO SCH (08:54)
[2018-07-20] MEDS: ASPIRIN 81 MG CHEWABLE TAB PO SCH (08:54)
[2018-07-20] MEDS: INSULIN LISPRO 100 UNIT/ML SC SCH ×2 (08:54→13:09)
[2018-07-20] MEDS: ENOXAPARIN 40 MG/0.4 ML SYR SC SCH (08:55)
[2018-07-20] MEDS: LISINOPRIL 20 MG TAB PO SCH (08:55)
[2018-07-20] MEDS: FUROSEMIDE 40 MG TAB PO SCH (08:55)
--- NOTE | 2018-07-20 10:11 | SOAPPROG ---
SOAP Progress Note Assessment/Plan: Assessment: 48 y/o woman with two months of CHF symptoms and new onset non-ischemic systolic CHF with LVEF 37% and class III NYHA sx. Etiology of her LV dysfunction is probably HTN. She has diuresed well and now off supplemental O2 and BP more controlled. I think she is euvolemic now. REC: 1)no change in current meds. 2)okay to discharge home today on current cardiac meds. 3)labs in one week (CBC, BMP and BNP level)....my office will arrange. 4)f/u CHF clinic-[facility] in ten days.....my office will arrange. 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 6)total fluid restrict 64oz/day and low NACL 1800mmols/diet. Thanks. 07/20/18 10:07 Subjective: feels better. Lost 6lbs last 24hrs. Now walking hallways 100-200ft without CP, dizziness or SAUCEDO. No PND. Objective: Vital Signs Temp Pulse Resp BP Pulse Ox 36.8 C 76 16 125/90 H 88 L 07/20/18 07:17 07/20/18 07:17 07/20/18 07:17 07/20/18 07:17 07/20/18 09:40 Laboratory Results 07/20/18 03:55 07/20/18 03:55 07/19/18 07/20/18 07/21/18 05:59 05:59 05:59 Intake Total 500 950 Output Total 1100 3300 Balance -600 -2350 PT 14.0 SEC (12.0-15.0) 07/16/18 03:40 INR 1.12 (0.83-1.16) 07/16/18 03:40 Physical Exam - Physical Exam General Appearance: alert EENT: normal ENT inspection Neck: full range of motion Respiratory: lungs clear Cardiac/Chest: regular rate, rhythm, systolic murmur, No gallop, No JVD (1-2/6 ERIKA heard, Positive S4 but no S3 heard. JVP to 7cm.) Peripheral Pulses: 2+: carotid (R), carotid (L), femoral (R), femoral (L), dorsalis-pedis (R), dorsalis-pedis (L) Abdomen: non-tender, No distended, No guarding, No ascites Skin: warm/dry Extremities: No pedal edema Neuro/Psych: alert ICD10 Worksheet Patient Problems: Problems Problem Status Onset Congestive heart failure Acute Hypertension Acute
[2018-07-20 11:27] VITALS: BP 119/80
--- NOTE | 2018-07-20 12:26 | ASDISCHSUM ---
Discharge Information Plan Status:Home with No Needs Medically Cleared to Leave:07/20/2018 Discharge Date:07/20/2018 CM D/C Disposition:Home, Routine, Self-Care ADT D/C Disposition:Home, Routine, Self-Care Projected Discharge Date:07/20/2018 Transportation at D/C: Discharge Delay Reason: Follow-Up Date:07/20/2018 Discharge Slot: Final Diagnosis: Placement Information Patient Contact Information Contact Name:MADHAV Relationship:Maryana Address: Work Phone: City: [facility] Phone: State/[place] Code: Email: Financial Information Financial Class:BCOP Primary Plan Desc: OUT OF [facility] Primary Plan Number:[id number] Secondary Plan Desc: Secondary Plan Number: Assessment Information LACE LACE Length of stay for Answers: 4-6 days current admission Comorbidities - select Answers: Congestive heart failure all that apply Diabetes (uncontrolled or controlled) Other Notes: HTN # of Emergency department Answers: 1-2 visits in the last 6 months Score: 9 Date Signed: 07/20/2018 12:24 PM Electronically Signed By:Luly Krueger RN [facility] Progress Note CM Note CM Note Notes: 07/13/2018 Case Management Note Met w/pt to discuss d/c needs. Py admitted for HTN and new onset congestive heart failure. Discussed in rounds. There are no therapies ordered today. Pt is employed at [employer]. Pt PCP is [facility] in [place]. Emergency contact is Sejal Salamanca [phone]. There are no identfied case management d/c needs d/t independence with ADL's and employment status. Case Management d/c poc: independent with follow up as directed. Case Management available if needs change. Date Signed: 07/13/2018 04:16 PM Electronically Signed By:Luly Krueger RN [facility] CM Progress Note CM Note CM Note Notes: Patient had L and R heart catheterizations today and was not found to have any underlying coronary disease. She will have a formal consulation w Dr Garber as an outpatient. She needs to remain inpatient, however, as her O2 needs are still high. Case Management still anticipates an independent discharge. Current CM Discharge plan: independent Date Signed: 07/16/2018 01:13 PM Electronically Signed By:Fouzia Rosenbaum RN [facility] CM Progress Note CM Note CM Note Notes: 07/19/2018 Case Management Note Discussed during rounds today. Diuresis continues. Discharge possible tomorrow. There are no new needs from case management. Case Management d/c poc: independent with follow up as directed. Case Management available if needs change. Date Signed: 07/19/2018 03:50 PM Electronically Signed By:Luly Krueger RN Case Management Discharge Plan Note Case Management Discharge Discharge Order Complete? Answers: Yes Patient to Obtain Answers: Independently Medications Discharge Comments Notes: 07/20/2018 Case Management Note Provided information on project homecoming from [employer]. No further case management d/c needs identified. Case Management d/c: independent with follow up as directed. Date Signed: 07/20/2018 12:25 PM Electronically Signed By:Luly Krueger RN Intervention Information
[2018-07-20] MEDS ORDERED: metFORMIN HCL 500 MG TAB PO SCH (18:00)
--- NOTE | 2018-07-21 05:31 | GDS ---
[f rep st] DISCHARGE SUMMARY DISCHARGE DIAGNOSES: 1. Acute systolic congestive heart failure, ejection fraction 15%. 2. Nonischemic cardiomyopathy. 3. Hypertensive emergency. 4. Diabetes type 2, new diagnosis. 5. Obesity, body mass index 34. HISTORY: The patient is a 48-year-old female, who had not previously had much in the way of outpatie care. She presented with acute congestive heart failure. She was found to have an EF of only 15% . This was felt to be due to uncontrolled hypertension and hypertensive emergency causing a nonische anyi cardiomyopathy. She had a cardiac catheterization that was negative for coronary artery disease. She was managed medically in conjunction with Dr. Garber. She has been initiated on lisinopril, Cor eg and Aldactone. She required multiple days of IV Lasix to get her diuresed. At the time of discha rge she is off oxygen with good saturations on room air. She was also incidentally noted to be diagn osed with type 2 diabetes. Hemoglobin A1c 8.5. She was also started on metformin. She has a new [facility] care doctor she will follow up with as well as close followup with [facility] with Dr. Garber . DISCHARGE MEDICATIONS: Please see computerized record for full detailed list. New medications: 1. Aspirin 81 mg p.o. daily. 2. Coreg 6.25 mg p.o. b.i.d. 3. Lasix 40 mg p.o. daily. 4. Lisinopril 30 mg p.o. daily. 5. Spironolactone 25 mg p.o. daily. 6. Metformin 500 mg p.o. b.i.d. ADDITIONAL DISCHARGE INSTRUCTIONS: 1. Labs in 1 week. CBC, BMP and BNP. 2. Follow up with CHF Clinic with Dr. Garber in 10 days. 3. No working for 10 days until seen by Dr. 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 4. Fluid restriction 64 ounces per day with a low-sodium diet. 5. Follow up with primary care provider regarding diabetes management. 6. Outpatient sleep study recommended. Greater than 30 minutes' time spent arranging this discharge. Patient was seen and examined by me on the day of discharge. /[id number]/MODL
== END 2018-07-20 16:50 | disposition home or self-care (01) | DRG 287 ==
LOC: CED 16:40 → CEDHOLD 18:45 → F2W 21:02 → OBSVTOIN 07-13 16:59
PROVIDERS: ADMIT Internal Medicine; ATTEND Internal Medicine
DX: I50.21 Acute systolic (congestive) heart failure (principal); I16.1 Hypertensive emergency; E87.1 Hypo-osmolality and hyponatremia; I11.0 Hypertensive heart disease with heart failure; E11.9 Type 2 diabetes mellitus without complications; I42.9 Cardiomyopathy, unspecified; E66.9 Obesity, unspecified; Z68.34 Body mass index [BMI] 34.0-34.9, adult; Z23 Encounter for immunization
CPT/HCPCS: 71046-PO; 71275-PO; 80053-ER; 84484-ER; 96374-ER; 96375-ER; G0008; G0378; J1644; J1650; J1815; J1940; J2250; J3010; Q9967